=== PATIENT | male | born 1960 | race Caucasian/White ===

== ENCOUNTER 2020-08-02 15:52 | Inpatient (IN) | payer MEDICARE, OTHER ==
[~2020-08-02] VITALS: Ht 167.6 cm; Wt 90.7 kg
--- NOTE | 2020-08-02 16:55 | NUR ---
SPOKE WITH (NEURO SOLAR FABRICATION TECHNICIAN) VIA TELEPHONE.
[2020-08-02] MEDS ORDERED: IOHEXOL 350 100 ML INFUS..BTL ONE (17:07)
[2020-08-02] MEDS ORDERED: IV NORMAL SALINE 250 ML IV ONE (17:07)
[2020-08-02] MEDS ORDERED: SWABABLE VALVE TRANSFER SET EA MC ONE (17:07)
[2020-08-02 17:32] LABS: BASOPHILS # (AUTO) 0.1 K/uL (0.0-8.0); BASOPHILS % (AUTO) 0.7 % (0.0-2.0); EOSINOPHILS # (AUTO) 0.4 K/uL (0.0-0.7); EOSINOPHILS % (AUTO) 3.6 % (0.0-7.0); HEMATOCRIT 29.9 % (36.7-47.1); HEMOGLOBIN 9.5 g/dL (12.5-16.3); LYMPHOCYTES # (AUTO) 1.1 K/uL (20.0-40.0); LYMPHOCYTES % (AUTO) 10.6 % (20.5-51.5); MEAN CORPUSCULAR HEMOGLOBIN 30.8 uug (23.8-33.4); MEAN CORPUSCULAR HGB CONC 32 g/dL (32.5-36.3); MEAN CORPUSCULAR VOLUME 97.2 fL (73.0-96.2); MONOCYTES % (AUTO) 9.6 % (0.0-11.0); NEUTROPHILS # (AUTO) 7.5 K/uL (1.8-8.9); NEUTROPHILS % (AUTO) 75.5 % (38.5-71.5); PLATELET COUNT (AUTO) 251 K/uL (152-348); RED BLOOD CELL COUNT(AUTO) 3.08 MIL/uL (4.06-5.63); WHITE BLOOD COUNT (AUTO) 9.9 K/uL (3.6-10.2)
[2020-08-02 17:43] LABS: BILIRUBIN,DIRECT 0.3 mg/dL (0.0-0.2); BILIRUBIN,TOTAL 0.9 mg/dL (0.2-1.0); TOTAL PROTEIN, SERUM 7.9 g/dL (6.4-8.2)
[2020-08-02] MEDS ORDERED: ASPIRIN 325 MG TABLET PO ONE (17:45)
--- NOTE | 2020-08-02 17:45 | NUR ---
PT BACK FROM CT, NAD NOTED.
[2020-08-02 17:49] LABS: CREATININE 13.7 mg/dL (0.6-1.3); POTASSIUM 6.4 mmol/L (3.5-5.1)
[2020-08-02] MEDS ORDERED: ASPIRIN 325 MG TABLET ONE (17:56)
--- NOTE | 2020-08-02 18:00 | NUR ---
Dr. Rubio spoke with Janice Hernandez via telephone.
[2020-08-02] MEDS ORDERED: DEXTROSE 50% 50 ML DISP.SYRIN IV ONE (18:15)
[2020-08-02] MEDS ORDERED: SODIUM POLYSTYRENE SULFONATE 15 G/60 ML LIQUID UDC PO ONE (18:15)
[2020-08-02] MEDS ORDERED: INSULIN REGULAR, HUMAN 300 UNIT/3 ML VIAL IV ONE (18:15)
[2020-08-02] MEDS ORDERED: SODIUM BICARBONATE 8.4% 50 MEQ/50 ML DISP.SYRIN IV ONE ×2 (18:15→18:21)
[2020-08-02] MEDS ORDERED: SODIUM POLYSTYRENE SULFONATE 15 G/60 ML LIQUID UDC ONE (18:20)
[2020-08-02] MEDS ORDERED: DEXTROSE 50% 50 ML DISP.SYRIN ONE (18:21)
[2020-08-02] MEDS ORDERED: INSULIN REGULAR, HUMAN 300 UNIT/3 ML VIAL ONE (18:21)
[2020-08-02] MEDS ORDERED: ACETAMINOPHEN 325 MG TABLET PO PRN (19:15)
[2020-08-02] MEDS ORDERED: MAG HYDROX/AL HYDROX/SIMETH 30 ML LIQUID UDC PO PRN (19:15)
--- NOTE | 2020-08-02 19:15 | NUR ---
HAND OFF REPORT GIVEN TO NALLELY OLMOS
--- NOTE | 2020-08-02 20:00 | NUR ---
PATIENT GETTING DIALYSIS AT BEDSIDE ROOM 05B.
--- NOTE | 2020-08-02 20:05 | NUR ---
The patient is having dialysis. Dialysis nurse requested to come back after an hour. 9:06 pm
[2020-08-02] MEDS: SIMVASTATIN 40 MG TABLET PO SCH (21:12)
[2020-08-02] MEDS ORDERED: SIMVASTATIN 40 MG TABLET ONE (21:13)
[2020-08-02] MEDS: BLOOD SUGAR DIAGNOSTIC 1 EACH STRIP VI SCH (21:16)
[2020-08-02] MEDS: HEPARIN SODIUM,PORCINE 5,000 UNITS/ML VIAL SQ SCH (23:13)
[2020-08-02] MEDS ORDERED: HEPARIN SODIUM,PORCINE 5,000 UNITS/ML VIAL ONE (23:15)
[2020-08-02] MEDS ORDERED: VANCOMYCIN IV 1,500 MG in IV DEXTROSE 5% 500 ML IV ONE (23:30)
[2020-08-03] MEDS ORDERED: BLOOD SUGAR DIAGNOSTIC 1 EACH STRIP VI SCH
[2020-08-03] MEDS ORDERED: CEFEPIME HCL 1 G VIAL ONE (00:02)
[2020-08-03] MEDS: CEFEPIME HCL 1 G in IV DEXTROSE 5% 50 ML IV SCH (00:04)
[2020-08-03] MEDS ORDERED: VANCOMYCIN 1000 MG VIAL ONE (00:14)
[2020-08-03] MEDS ORDERED: VANCOMYCIN HCL 500 MG VIAL ONE (00:15)
[2020-08-03] MEDS: BLOOD SUGAR DIAGNOSTIC 1 EACH STRIP VI SCH ×4 (07:30→21:00)
[2020-08-03] MEDS: PANTOPRAZOLE SODIUM 40 MG TABLET.DR PO SCH (07:45)
[2020-08-03] MEDS ORDERED: ASPIRIN EC 81 MG TABLET.DR PO ONE (07:54)
[2020-08-03] MEDS ORDERED: HEPARIN SODIUM,PORCINE 5,000 UNITS/ML VIAL ONE (07:55)
[2020-08-03] MEDS ORDERED: PANTOPRAZOLE SODIUM 40 MG TABLET.DR PO ONE (07:55)
[2020-08-03] MEDS: HEPARIN SODIUM,PORCINE 5,000 UNITS/ML VIAL SQ SCH (09:10)
[2020-08-03] MEDS: ASPIRIN EC 81 MG TABLET.DR PO SCH (09:10)
[2020-08-03] MEDS ORDERED: ASPI81TA31 PO (09:58)
[2020-08-03] MEDS ORDERED: CALC-935 PO (09:58)
[2020-08-03] MEDS ORDERED: CARV25TA2 PO (09:58)
[2020-08-03] MEDS ORDERED: CALC-1118 PO (09:58)
[2020-08-03] MEDS ORDERED: SEVE800T8 PO (09:58)
[2020-08-03] MEDS ORDERED: FURO80TA87 PO (09:58)
--- NOTE | 2020-08-03 10:02 | NUR ---
Echocardiogram & physical therapy session done. Patient tolerated well. Patient is still waiting for an ICU/CCU bed@this time.
--- NOTE | 2020-08-03 11:04 | NUR ---
Patient's care was downgraded to telemetry from ICU/CCU but there is still no telemetry bed or available nurse in 3rd floor@this time per nursing supervisor putty and caluking Jazmin.
--- NOTE | 2020-08-03 11:20 | NUR ---
Dialysis in progress
[2020-08-03] MEDS ORDERED: VANCOMYCIN IV 500 MG in IV DEXTROSE 5% 100 ML IV PRN (12:00)
--- NOTE | 2020-08-03 12:05 | NUR ---
Slurry [email or web address]
[2020-08-03] MEDS: CARVEDILOL 25 MG TABLET PO SCH ×2 (12:26→18:19)
[2020-08-03] MEDS ORDERED: CARVEDILOL 25 MG TABLET ONE ×2 (12:30→17:41)
--- NOTE | 2020-08-03 15:15 | NUR ---
Patient is still waiting for an inpatient bed & nurse in ER.
--- NOTE | 2020-08-03 18:29 | NUR ---
Patient moved to hospital bed from [facility]. Patient denies dizziness, calm with respiration:easy.
[2020-08-03 19:13] LABS: *BILIRUBIN,URIN NEGATIVE (NEGATIVE); *BLOOD, URINE 2+ (NEGATIVE); *CLARITY,URINE SLIGHTLY CLOUDY (CLEAR); *COLOR,URINE YELLOW (YELLOW); *KETONES,URINE NEGATIVE (NEGATIVE); *UROBILINOGEN,URINE 0.2 E.U./dl (NORMAL); LEUKOCYTE ESTERASE ,URINE NEGATIVE (NEGATIVE); NITRITE, URINE NEGATIVE (NEGATIVE); PH,URINE 8.5 (5.0-8.0); UGLUCOSE TRACE (NEGATIVE)
--- NOTE | 2020-08-03 19:16 | NUR ---
Hands off report given to TEJAL Green.
[2020-08-03] MEDS: SIMVASTATIN 40 MG TABLET PO SCH (21:00)
[2020-08-03 22:35] LABS: RBC,URINE 20-50 /HPF (0-3)
[2020-08-03 22:36] LABS: BACTERIA,URINE NONE SEEN /HPF (NONE SEEN); SQUAMOUS EPITHELIAL CELL,UR FEW /HPF (NONE SEEN); URINE AMORPHOUS PHOSPHATES FEW /HPF
[2020-08-04] MEDS ORDERED: CEFEPIME HCL 1 G VIAL ONE (01:07)
[2020-08-04] MEDS ORDERED: SIMVASTATIN 40 MG TABLET ONE (01:14)
--- NOTE | 2020-08-04 02:29 | NUR ---
Report given to RN Liliana - Patient will be transferred to room 317
--- NOTE | 2020-08-04 02:29 | NUR ---
New IV inserted in JOAQUIM
[2020-08-04 02:30] VITALS: BP_SYST 128; BP_SYST 151; BP_DIAS 61; BP_DIAS 74
--- NOTE | 2020-08-04 03:01 | NUR ---
Patient trasnferred via wheelchair to Room 317 - in the care of TEJAL Ford. Stable condition.
--- NOTE | 2020-08-04 03:10 | NUR ---
Pt transferred from ER c/o of dizziness x5 days. Patient is AOX3. Denies any acute distress or pain at this time. Pt has CONNIE AV Fistula. Currently on dialysis (-). PIV on JOAQUIM is intact. V/S stable on room air. NSR on tele monitor. Personal belongings checked and with the patient. Safety measures in place. Call light within reach. Will continue with the plan of care.
[2020-08-04 04:00] VITALS: BP 148/65
[2020-08-04] MEDS: PANTOPRAZOLE SODIUM 40 MG TABLET.DR PO SCH (06:41)
[2020-08-04] MEDS: BLOOD SUGAR DIAGNOSTIC 1 EACH STRIP VI SCH ×4 (06:46→20:49)
--- NOTE | 2020-08-04 07:05 | NUR ---
Pt remained stable throughout the shift. Denies any acute distress or pain at this time. V/S stable on room air. NSR on tele monitor. Comfort care and needs attended. Safety measures in place. Call light within reach. Will endorse to oncoming nurse accordingly.
--- NOTE | 2020-08-04 07:30 | NUR ---
Received patient in bed, Awake alert and oriented. No sign of distress noted. Safety precautions are in place. Will continue to monitor.
[2020-08-04 08:48] LABS: MAGNESIUM 2.3 mg/dL (1.8-2.4); PHOSPHOROUS 6.5 mg/dL (2.5-4.9); POTASSIUM 4.8 mmol/L (3.5-5.1)
[2020-08-04 09:29] LABS: BASOPHILS # (AUTO) 0.1 K/uL (0.0-8.0); BASOPHILS % (AUTO) 1.1 % (0.0-2.0); EOSINOPHILS # (AUTO) 0.7 K/uL (0.0-0.7); EOSINOPHILS % (AUTO) 7.1 % (0.0-7.0); HEMOGLOBIN 9.1 g/dL (12.5-16.3); LYMPHOCYTES # (AUTO) 1.6 K/uL (20.0-40.0); LYMPHOCYTES % (AUTO) 16.3 % (20.5-51.5); MEAN CORPUSCULAR HEMOGLOBIN 31.6 uug (23.8-33.4); MEAN CORPUSCULAR HGB CONC 34 g/dL (32.5-36.3); MEAN CORPUSCULAR VOLUME 94.2 fL (73.0-96.2); MONOCYTES # (AUTO) 1.1 K/uL (2.0-10.0); NEUTROPHILS # (AUTO) 6.4 K/uL (1.8-8.9); NEUTROPHILS % (AUTO) 64.5 % (38.5-71.5); PLATELET COUNT (AUTO) 282 K/uL (152-348); RED BLOOD CELL COUNT(AUTO) 2.87 MIL/uL (4.06-5.63); WHITE BLOOD COUNT (AUTO) 9.9 K/uL (3.6-10.2)
[2020-08-04] MEDS: CLOPIDOGREL 75 MG TABLET PO SCH (09:48)
[2020-08-04] MEDS: ASPIRIN EC 81 MG TABLET.DR PO SCH (09:48)
[2020-08-04] MEDS: CARVEDILOL 25 MG TABLET PO SCH ×2 (09:52→17:06)
[2020-08-04 09:56] LABS: THYROID STIMULATING HORMONE 0.339 mIU/mL (0.358-3.740)
[2020-08-04 11:08] VITALS: BP 128/92
[2020-08-04] MEDS ORDERED: VANCOMYCIN IV 500 MG in IV DEXTROSE 5% 100 ML IV ONE (12:00)
[2020-08-04 12:40] LABS: CREATININE 11.8 mg/dL (0.6-1.3)
--- NOTE | 2020-08-04 14:57 | NUR ---
NADER Camacho gave order to stop the order to call if patients blood sugar is greater than 150. Will continue to monitor.
[2020-08-04 15:40] VITALS: BP 149/83
[2020-08-04] MEDS ORDERED: CARVEDILOL 25 MG TABLET PO SCH (17:00)
[2020-08-04] MEDS ORDERED: SEVELAMER CARBONATE 800 MG TABLET PO SCH (17:30)
[2020-08-04 20:00] VITALS: BP 150/78
--- NOTE | 2020-08-04 20:15 | NUR ---
Patient in bed.[place] alert x4.On room air.no s/s of distress noted.Denies pain nor SOB.Left upper arm 20 g patent and intact.Due meds given .Patient made aware regarding NPO after mid night.Continue safety measures.Will continue to monitor.
[2020-08-04] MEDS: SIMVASTATIN 40 MG TABLET PO SCH (20:40)
[2020-08-04] MEDS: CEFEPIME HCL 1 G in IV DEXTROSE 5% 50 ML IV SCH ×3 (23:41)
[2020-08-05] VITALS: BP 146/65
[2020-08-05 04:00] VITALS: BP 148/85
[2020-08-05] MEDS: PANTOPRAZOLE SODIUM 40 MG TABLET.DR PO SCH (06:05)
[2020-08-05] MEDS: BLOOD SUGAR DIAGNOSTIC 1 EACH STRIP VI SCH ×4 (06:06→21:00)
[2020-08-05] MEDS: CARVEDILOL 25 MG TABLET PO SCH ×2 (08:00→17:16)
[2020-08-05] MEDS: CALCIUM CARB/VITAMIN D 600-400 MG TABLET PO SCH (09:00)
[2020-08-05] MEDS: ASPIRIN EC 81 MG TABLET.DR PO SCH (09:00)
[2020-08-05] MEDS ORDERED: ASPIRIN 81 MG TAB.CHEW PO SCH (09:00)
[2020-08-05] MEDS: CLOPIDOGREL 75 MG TABLET PO SCH (09:00)
[2020-08-05] MEDS: FUROSEMIDE 40 MG TABLET PO SCH ×2 (09:00→17:16)
[2020-08-05] MEDS: SEVELAMER CARBONATE 800 MG TABLET PO SCH ×3 (09:00→17:16)
[2020-08-05] MEDS: CALCIUM CARBONATE 500 MG TAB.CHEW PO SCH ×2 (09:00→17:15)
[2020-08-05 12:09] VITALS: BP 160/93
[2020-08-05 12:47] LABS: BASOPHILS # (AUTO) 0.1 K/uL (0.0-8.0); BASOPHILS % (AUTO) 1.2 % (0.0-2.0); EOSINOPHILS # (AUTO) 0.8 K/uL (0.0-0.7); EOSINOPHILS % (AUTO) 7.9 % (0.0-7.0); HEMATOCRIT 27.1 % (36.7-47.1); HEMOGLOBIN 8.9 g/dL (12.5-16.3); LYMPHOCYTES # (AUTO) 1.5 K/uL (20.0-40.0); LYMPHOCYTES % (AUTO) 15.6 % (20.5-51.5); MEAN CORPUSCULAR HEMOGLOBIN 30.9 uug (23.8-33.4); MEAN CORPUSCULAR HGB CONC 33 g/dL (32.5-36.3); MEAN CORPUSCULAR VOLUME 94.9 fL (73.0-96.2); MONOCYTES # (AUTO) 0.8 K/uL (2.0-10.0); MONOCYTES % (AUTO) 8.7 % (0.0-11.0); NEUTROPHILS # (AUTO) 6.4 K/uL (1.8-8.9); NEUTROPHILS % (AUTO) 66.6 % (38.5-71.5); PLATELET COUNT (AUTO) 283 K/uL (152-348); RED BLOOD CELL COUNT(AUTO) 2.86 MIL/uL (4.06-5.63); WHITE BLOOD COUNT (AUTO) 9.6 K/uL (3.6-10.2)
[2020-08-05 13:10] LABS: MAGNESIUM 2.5 mg/dL (1.8-2.4); PHOSPHOROUS 6.6 mg/dL (2.5-4.9); POTASSIUM 5.2 mmol/L (3.5-5.1)
[2020-08-05 14:07] LABS: CREATININE 15.1 mg/dL (0.6-1.3)
[2020-08-05 17:40] VITALS: BP 121/67
--- NOTE | 2020-08-05 20:00 | NUR ---
RECS PT IN BED,,RESTING QUIETLY, NO DISTRESS NOTED,PACEMAKER ON LEFT SIDE OF CHEST WALL NOTED,ALERT AND ORIENTED X4, AV FISTULA ON RT UPPER ARM,CONTINENT OF B/B. NO COMPLAINTS PRESENTED.ON TELE SINUS MYKE/SINUS R.FOR HALEY IN AM
[2020-08-05 20:35] VITALS: BP 135/88
[2020-08-05] MEDS: SIMVASTATIN 40 MG TABLET PO SCH (22:32)
[2020-08-05] MEDS: CEFEPIME HCL 1 G in IV DEXTROSE 5% 50 ML IV SCH (23:03)
--- NOTE | 2020-08-06 | NUR ---
ADVISED PT TO OBSERVE NPO IN PREP FOR HALEY IN AM, CONSENT SIGNED, DUE MEDS GIVEN. NEEDS ATTENDED TO.PT CONCERN ABOUT MISSED DIALYSIS, WILL FF UP IN AM.
[2020-08-06 00:51] VITALS: BP 179/73
--- NOTE | 2020-08-06 04:10 | NUR ---
SLEPT FAIRLY WELL, CALL LITE W/I REACH.ON TELE SINUS RHYTHM 80-90.
[2020-08-06 04:20] VITALS: BP 156/69
[2020-08-06] MEDS: BLOOD SUGAR DIAGNOSTIC 1 EACH STRIP VI SCH ×4 (07:30→21:32)
[2020-08-06 07:50] LABS: BASOPHILS # (AUTO) 0.2 K/uL (0.0-8.0); BASOPHILS % (AUTO) 1.9 % (0.0-2.0); EOSINOPHILS # (AUTO) 0.7 K/uL (0.0-0.7); HEMATOCRIT 26.7 % (36.7-47.1); HEMOGLOBIN 8.9 g/dL (12.5-16.3); LYMPHOCYTES # (AUTO) 1.7 K/uL (20.0-40.0); LYMPHOCYTES % (AUTO) 16.8 % (20.5-51.5); MEAN CORPUSCULAR HEMOGLOBIN 31.5 uug (23.8-33.4); MEAN CORPUSCULAR HGB CONC 34 g/dL (32.5-36.3); MEAN CORPUSCULAR VOLUME 94.2 fL (73.0-96.2); MONOCYTES # (AUTO) 0.7 K/uL (2.0-10.0); MONOCYTES % (AUTO) 7.4 % (0.0-11.0); NEUTROPHILS # (AUTO) 6.8 K/uL (1.8-8.9); NEUTROPHILS % (AUTO) 66.9 % (38.5-71.5); PLATELET COUNT (AUTO) 302 K/uL (152-348); RED BLOOD CELL COUNT(AUTO) 2.84 MIL/uL (4.06-5.63); WHITE BLOOD COUNT (AUTO) 10.1 K/uL (3.6-10.2)
[2020-08-06 07:57] LABS: MAGNESIUM 2.7 mg/dL (1.8-2.4); PHOSPHOROUS 6.9 mg/dL (2.5-4.9); VANCOMYCIN,RANDOM 20.6 ug/mL (18.0-26.0)
--- NOTE | 2020-08-06 08:00 | NUR ---
maker up folding for HALEY
[2020-08-06 08:21] LABS: CREATININE 17.2 mg/dL (0.6-1.3); POTASSIUM 6.2 mmol/L (3.5-5.1)
--- NOTE | 2020-08-06 09:35 | NUR ---
Post HALEY, VS taken and recorded, NPO maintained, scheduled for cardiac CTA
[2020-08-06 10:08] VITALS: BP 149/79
[2020-08-06] MEDS: CALCIUM CARBONATE 500 MG TAB.CHEW PO SCH ×2 (10:50→17:00)
[2020-08-06] MEDS: CALCIUM CARB/VITAMIN D 600-400 MG TABLET PO SCH (10:50)
[2020-08-06] MEDS: PANTOPRAZOLE SODIUM 40 MG TABLET.DR PO SCH (10:51)
[2020-08-06] MEDS: ASPIRIN EC 81 MG TABLET.DR PO SCH (10:51)
[2020-08-06] MEDS: FUROSEMIDE 40 MG TABLET PO SCH ×2 (10:51→17:00)
[2020-08-06] MEDS: SEVELAMER CARBONATE 800 MG TABLET PO SCH ×3 (10:52→17:00)
[2020-08-06] MEDS: CLOPIDOGREL 75 MG TABLET PO SCH (10:52)
[2020-08-06] MEDS: CARVEDILOL 25 MG TABLET PO SCH ×2 (10:53→18:00)
--- NOTE | 2020-08-06 11:27 | NUR ---
Risk Management Professional Consultation: SW completed social service technician assessment with this patient through [facility], due to COVID-19 precautions. Reason for consultation is Stroke. Patient is a 59 year old male who was brought in to the ED on 08/02 due to dizziness and weakness while walking. Patient is alert, oriented, receptive to speaking with this SW. Patient lives alone in an apartment ([address], [place]). Patient is ; patient has 2 children but they live in [facility]. Patient reported being independent with ADL's and driving, and receiving dialysis 3 x week. Patient reported being at [facility] last week for abdominal pain and elevated BP. Patient reported feeling anxious due to back to back hospitalizations and multiple medical problems. SW allowed time for patient to express feelings, and provided supportive counseling. Patient is aware of stroke diagnosis, and reported continuing to feel dizzy and some weakness, although stated he is able to walk to the restroom. PHQ-9 administered, and patient reported not noticing any recent changes in his mood and behavior, however reported some inconsistencies with his sleep while in the hospital. Patient's needs for community resources explored, and patient stated he has home care services and a nurse. Patient stated he could not think of anything else he would need at this time. SW offered transportation resources, just in case he may not be able to drive upon returning home, and patient expressed agreement with receiving this information. Throughout this interview, patient was engaged in conversation, cooperative with this SW. Patient maintained appropriate eye contact, affect and behavior were WNL. Patient's speech was clear, thought process and content were appropriate. Towards the end of this interview, patient began complaining of increased dizziness. SW ended this interview and notified patient's nurse. SW to follow-up with patient and provide him with transportation resources and educational material on stroke.
--- NOTE | 2020-08-06 12:30 | NUR ---
Pt picked up by ambulance for cardiac CTA at [facility]
--- NOTE | 2020-08-06 13:00 | NUR ---
[place] held, pt off unit for procedure
--- NOTE | 2020-08-06 14:51 | NUR ---
Pt returned via ambulance from [facility], cardiac CTA done. Scheduled for hemodialysis.
[2020-08-06 16:31] VITALS: BP 153/60
--- NOTE | 2020-08-06 16:47 | NUR ---
4:25pm: SW met with the patient and provided him with information handout on Stroke Referrals and informational packet on [employer]ESS transportation services (includes guidelines for eligibility, application, and instructions on how to apply). Patient was receptive of these resources.
--- NOTE | 2020-08-06 17:30 | NUR ---
1700 and 1800 meds held d/t pt receiving dialysis. Endorsed to rn night.
[2020-08-06 20:00] VITALS: BP 171/92
[2020-08-06] MEDS: SIMVASTATIN 40 MG TABLET PO SCH (21:29)
--- NOTE | 2020-08-06 21:45 | NUR ---
Patient awake.Dialysis done with 1400 ml removed.Av shunt on right upper arm .Patient denies pain.No s/s of distress noted.On room air.IV on left upper arm paten and intact.Administered IV ATb.No a/r noted.Placed SCd pump on jamin lower leg.Continue safety measures.will continue to monitor.
[2020-08-07 00:18] VITALS: BP 143/72
[2020-08-07] MEDS: CEFEPIME HCL 1 G in IV DEXTROSE 5% 50 ML IV SCH (00:32)
[2020-08-07 04:00] VITALS: BP 144/76
[2020-08-07] MEDS: PANTOPRAZOLE SODIUM 40 MG TABLET.DR PO SCH (06:04)
[2020-08-07] MEDS: BLOOD SUGAR DIAGNOSTIC 1 EACH STRIP VI SCH ×2 (06:04→10:39)
[2020-08-07 08:04] LABS: BASOPHILS # (AUTO) 0.2 K/uL (0.0-8.0); BASOPHILS % (AUTO) 1.6 % (0.0-2.0); EOSINOPHILS # (AUTO) 0.6 K/uL (0.0-0.7); EOSINOPHILS % (AUTO) 6.3 % (0.0-7.0); HEMATOCRIT 26.3 % (36.7-47.1); LYMPHOCYTES # (AUTO) 1.4 K/uL (20.0-40.0); LYMPHOCYTES % (AUTO) 13.8 % (20.5-51.5); MEAN CORPUSCULAR HEMOGLOBIN 32.2 uug (23.8-33.4); MEAN CORPUSCULAR HGB CONC 34 g/dL (32.5-36.3); MEAN CORPUSCULAR VOLUME 94.4 fL (73.0-96.2); MONOCYTES # (AUTO) 0.9 K/uL (2.0-10.0); MONOCYTES % (AUTO) 8.7 % (0.0-11.0); NEUTROPHILS % (AUTO) 69.6 % (38.5-71.5); PLATELET COUNT (AUTO) 316 K/uL (152-348); RED BLOOD CELL COUNT(AUTO) 2.79 MIL/uL (4.06-5.63)
[2020-08-07] MEDS: ASPIRIN EC 81 MG TABLET.DR PO SCH (08:23)
[2020-08-07] MEDS: SEVELAMER CARBONATE 800 MG TABLET PO SCH ×2 (08:23→12:10)
[2020-08-07] MEDS: CARVEDILOL 25 MG TABLET PO SCH (08:23)
[2020-08-07] MEDS: CALCIUM CARB/VITAMIN D 600-400 MG TABLET PO SCH (08:23)
[2020-08-07] MEDS: CLOPIDOGREL 75 MG TABLET PO SCH (08:23)
[2020-08-07] MEDS: FUROSEMIDE 40 MG TABLET PO SCH (08:23)
[2020-08-07] MEDS: CALCIUM CARBONATE 500 MG TAB.CHEW PO SCH (08:23)
[2020-08-07 08:29] LABS: MAGNESIUM 2.4 mg/dL (1.8-2.4); PHOSPHOROUS 7.1 mg/dL (2.5-4.9)
[2020-08-07 08:58] LABS: CREATININE 13.3 mg/dL (0.6-1.3)
[2020-08-07] MEDS ORDERED: SIMV-49 PO (11:58)
[2020-08-07] MEDS ORDERED: CLOP75TA33 PO (11:58)
[2020-08-07 12:00] VITALS: BP 135/60
--- NOTE | 2020-08-07 15:32 | NUR ---
dc orders received noted and carried out,dc heplock per md orders,dc instruction and education given to the pt,pt said he will follow up with his pcp in one week.pt left the facility via private car i n stable condition
[2020-08-07] MEDS ORDERED: ETOMIDATE 20 MG/10 ML VIAL MC ONE (15:34)
[2020-08-07] MEDS ORDERED: PROPOFOL 200 MG/20 ML BOTTLE IV ONE (15:34)
== END 2020-08-07 15:35 | disposition home or self-care (01) | DRG 64 ==
LOC: ER 15:52 → TRANSITION 18:45 → TELE3 08-04 02:27
PROVIDERS: ADMIT Registered Nurse; ATTEND Nurse Practitioner Acute Care
PROC: 5A1D70Z Performance of Urinary Filtration, Intermittent, Less than 6 Hours Per Day (ICD-10-PCS; principal; 2020-08-03)
DX: I63.10 Cerebral infarction due to embolism of unspecified precerebral artery (principal); N18.6 End stage renal disease; J18.9 Pneumonia, unspecified organism; I12.0 Hypertensive chronic kidney disease with stage 5 chronic kidney disease or end stage renal disease; Q21.1 Atrial septal defect; Z99.2 Dependence on renal dialysis; Z91.15 Patient's noncompliance with renal dialysis; D63.1 Anemia in chronic kidney disease; E66.9 Obesity, unspecified; E87.5 Hyperkalemia; I25.5 Ischemic cardiomyopathy; Z95.0 Presence of cardiac pacemaker; Z68.32 Body mass index [BMI] 32.0-32.9, adult; I25.10 Atherosclerotic heart disease of native coronary artery without angina pectoris; I25.2 Old myocardial infarction; Z95.5 Presence of coronary angioplasty implant and graft; R40.2362 Coma scale, best motor response, obeys commands, at arrival to emergency department; R40.2142 Coma scale, eyes open, spontaneous, at arrival to emergency department; R40.2252 Coma scale, best verbal response, oriented, at arrival to emergency department; R29.701 NIHSS score 1; Z20.822 Contact with and (suspected) exposure to COVID-19
CPT/HCPCS: 36415; 70030-TC; 70450; 70496; 71045; 83615; 83690; 83735; 84100; 84443; 85025; 85730; 86140; 87040; 90937; 93005; 93307; 93312; 93880; A4217; A4663; G0378; J0692; J1644; J1815; J3370; J3490; J7030; J7050; J7060; Q9967